=== PATIENT | male | born 1940 | race Caucasian/White ===

== ENCOUNTER 2018-12-19 20:58 | Emergency (ER) | payer MEDICARE, OTHER ==
[~2018-12-19] VITALS: Ht 177.8 cm; Wt 81.8 kg
[2018-12-19] MEDS ORDERED: NS IV 1000 ML 1,000 ML IV SCH (21:16)
[2018-12-19] MEDS ORDERED: ALPR0.25 PO (21:18)
[2018-12-19 21:21] LABS: HEMATOCRIT 45 % (40-54); HEMOGLOBIN 15.4 G/DL (13.3-17.7); MEAN CORPUSCULAR HEMOGLOBIN 30 PG (25-34); MEAN CORPUSCULAR HGB CONC 34 G/DL (32-36); MEAN CORPUSCULAR VOLUME 89 FL (80-99); WHITE BLOOD COUNT 6.3 10^3/uL (4.3-11.0)
[2018-12-19 21:22] LABS: BASOPHILS % (AUTO) 0 % (0-10); EOSINOPHILS # (AUTO) 0.3 10^3/uL (0.0-0.3); EOSINOPHILS % (AUTO) 5 % (0-10); LYMPHOCYTES # (AUTO) 2.1 X 10^3 (1.0-4.0); LYMPHOCYTES % (AUTO) 33 % (12-44); MEAN PLATELET VOLUME 8.5 FL (7.4-10.4); MONOCYTES # (AUTO) 0.6 X 10^3 (0.0-1.0); MONOCYTES % (AUTO) 9 % (0-12); NEUTROPHILS # (AUTO) 3.3 X 10^3 (1.8-7.8); NEUTROPHILS % (AUTO) 52 % (42-75); PLATELET COUNT 264 10^3/uL (130-400); RED CELL DISTRIBUTION WIDTH 13.3 % (10.0-14.5)
--- NOTE | 2018-12-19 21:28 | ED Cardiac General ---
History of Present Illness General Chief Complaint: Chest Pain Stated Complaint: CHEST TIGHTNESS,COUGHING Nursing Triage Note: pt reports 3 weeks of fatigue, not feeling right and chest tightness at times, no cp upon arrival to ed History of Present Illness Date Seen by Provider: Dec 19, 2018 Time Seen by Provider: 21:00 Initial Comments The patient is a 78-year-old male with no known chronic medical history and who does not take any daily medications. 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 The patient presents with concern for 3 weeks of indolent symptoms of fatigue with exertion, dry nonproductive cough and mild malaise. He reports some associated chest discomfort at times, mostly with coughing, but denies any now. 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 He denies any associated fevers, nausea or vomiting, decreased food or fluid intake, headache, focal weakness, numbness, tingling, neck stiffness, vision changes, shortness of breath at rest or really any dyspnea with exertion at all, flank pain, back pain, dysuria or hematuria, changes in bowel habits. Patient is pleasantly and appropriately interactive and alert and oriented 4 and no significant distress upon initial assessment. Vital signs are appropriate aside from mildly elevated blood pressure. Patient does have a follow-up appointment already scheduled with his primary care physician in a few days but was feeling so rundown today that he elected to come in to the emergency department for evaluation. Allergies and Home Medications Allergies Coded Allergies: meperidine (Verified Allergy, Unknown, 12/19/18) Home Medications Alprazolam 0.25 Mg Tablet, 0.25 MG PO for ANXIETY, (Reported) Patient Home Medication List Home Medication List Reviewed: Yes Review of Systems Review of Systems Constitutional: see HPI All Other Systems Reviewed Negative Unless Noted: Yes (Negative excepted noted.) Past Tbdyeom-Kujzge-Ajwdtz Hx Past Med/Social Hx: Reviewed Nursing Past Med/Soc Hx Patient Social History Alcohol Use: Denies Use Recreational Drug Use: No Smoking Status: Never a Smoker 2nd Hand Smoke Exposure: No Recent Foreign Travel: No Contact w/Someone Who Travel: No Recent Infectious Disease Expo: No Recent Hopitalizations: No Physical Abuse: No Sexual Abuse: No Mistreated: No Fear: No Seasonal Allergies Seasonal Allergies: No Past Medical History Surgeries: No Respiratory: No Cardiac: No Neurological: No Genitourinary: No Gastrointestinal: No Musculoskeletal: No Endocrine: No HEENT: No Cancer: No Psychosocial: No Integumentary: No Blood Disorders: No Family Medical History Reviewed Nursing Family Hx Physical Exam Vital Signs Vital Signs - First Documented Capillary Refill : Less Than 3 Seconds Height, Weight, BMI Height: '" Weight: lbs. oz. kg; 25.00 BMI Method: General Appearance: No Apparent Distress Other comments This is an elderly male appearing nontoxic and in no acute distress. Head is normocephalic and atraumatic. Neck is supple and nontender. Oropharynx is moist. Lungs are clear to auscultation in all stations. There is a normal S1 and S2 without rubs or gallops and capillary refill is appropriate, less than 2 seconds globally. Abdomen is soft, nontender nondistended. Skin is warm and dry without cyanosis, clubbing or edema. There is no dependent peripheral edema noted. Psychiatrically, the patient immaturity appropriate mood and affect and is alert. Neurologically, patient a related in with a narrow, steady gait, is alert and oriented 4 and no lateralizing deficits are grossly evident. Progress/Results/Core Measures Results/Orders Lab Results Laboratory Tests Test 12/19/18 21:05 12/19/18 21:16 Range/Units White Blood Count 6.3 4.3-11.0 10^3/uL Red Blood Count 5.07 4.35-5.85 10^6/uL Hemoglobin 15.4 13.3-17.7 G/DL Hematocrit 45 40-54 % Mean Corpuscular Volume 89 80-99 FL Mean Corpuscular Hemoglobin 30 25-34 PG Mean Corpuscular Hemoglobin Concent 34 32-36 G/DL Red Cell Distribution Width 13.3 10.0-14.5 % Platelet Count 264 130-400 10^3/uL Mean Platelet Volume 8.5 7.4-10.4 FL Neutrophils (%) (Auto) 52 42-75 % Lymphocytes (%) (Auto) 33 12-44 % Monocytes (%) (Auto) 9 0-12 % Eosinophils (%) (Auto) 5 0-10 % Basophils (%) (Auto) 0 0-10 % Neutrophils # (Auto) 3.3 1.8-7.8 X 10^3 Lymphocytes # (Auto) 2.1 1.0-4.0 X 10^3 Monocytes # (Auto) 0.6 0.0-1.0 X 10^3 Eosinophils # (Auto) 0.3 0.0-0.3 10^3/uL Basophils # (Auto) 0.0 0.0-0.1 10^3/uL Prothrombin Time 12.4 12.2-14.7 SEC INR Comment 0.9 0.8-1.4 Activated Partial Thromboplast Time 26 24-35 SEC Sodium Level 144 135-145 MMOL/L Potassium Level 4.4 3.6-5.0 MMOL/L Chloride Level 109 H 98-107 MMOL/L Carbon Dioxide Level 26 21-32 MMOL/L Anion Gap 9 5-14 MMOL/L Blood Urea Nitrogen 20 H 7-18 MG/DL Creatinine 1.22 0.60-1.30 MG/DL Estimat Glomerular Filtration Rate 58 BUN/Creatinine Ratio 16 Glucose Level 90 70-105 MG/DL Calcium Level 9.5 8.5-10.1 MG/DL Corrected Calcium 9.3 8.5-10.1 MG/DL Total Bilirubin 0.4 0.1-1.0 MG/DL Aspartate Amino Transf (AST/SGOT) 30 5-34 U/L Alanine Aminotransferase (ALT/SGPT) 34 0-55 U/L Alkaline Phosphatase 63 40-136 U/L Troponin I < 0.30 <0.30 NG/ML Pro-B-Type Natriuretic Peptide 121.7 H <75.0 PG/ML Total Protein 6.8 6.4-8.2 GM/DL Albumin 4.2 3.2-4.5 GM/DL Lipase 52 8-78 U/L Urine Color YELLOW Urine Clarity CLEAR Urine pH 6.5 5-9 Urine Specific [place] 1.015 L 1.016-1.022 Urine Protein NEGATIVE NEGATIVE Urine Glucose (UA) NEGATIVE NEGATIVE Urine Ketones NEGATIVE NEGATIVE Urine Nitrite NEGATIVE NEGATIVE Urine Bilirubin NEGATIVE NEGATIVE Urine Urobilinogen 0.2 NORMAL MG/DL Urine Leukocyte Esterase NEGATIVE NEGATIVE Urine RBC (Auto) TRACE-I NEGATIVE Urine RBC 5-10 H /HPF Urine WBC NONE /HPF Urine Squamous Epithelial Cells NONE /HPF Urine Crystals NONE /LPF Urine Bacteria NEGATIVE /HPF Urine Casts NONE /LPF Urine Mucus NEGATIVE /LPF Urine Culture Indicated NO My Orders Orders - ADDIE SOLITARIO MD Cbc With Automated Diff (12/19/18 21:16) Comprehensive Metabolic Panel (12/19/18 21:16) Lipase (12/19/18 21:16) Troponin I (12/19/18 21:16) Ekg Tracing (12/19/18 21:16) Chest Pa/Lat (2 View) (12/19/18 21:16) Probnp Fs (12/19/18 21:16) Protime With Inr (12/19/18 21:16) Partial Thromboplastin Time (12/19/18 21:16) Ua Culture If Indicated (12/19/18 21:16) Acetaminophen Tablet/Caplet (Tylenol T (12/19/18 21:30) Ed Iv/Invasive Line Start (12/19/18 21:16) Ns Iv 1000 Ml (Sodium Chloride 0.9%) (12/19/18 21:16) Ct Chest W (12/19/18 21:54) Iohexol Injection (Omnipaque 350 Mg/Ml 1 (12/19/18 22:15) Received Contrast (Hold Metformin- Contr (12/19/18 22:15) Sodium Chloride Flush (Catheter Flush Sy (12/19/18 22:15) Ns (Ivpb) (Sodium Chloride 0.9% Ivpb Bag (12/19/18 22:15) Medications Given in ED Current Medications Medications Dose Ordered Sig/Taj Route Start Time Stop Time Status Last Admin Dose Admin Acetaminophen 975 mg ONCE PRN PO 12/19/18 21:30 12/19/18 21:24 975 MG Iohexol 75 ml ONCE ONCE IV 12/19/18 22:15 12/19/18 22:19 DC 12/19/18 22:32 75 ML Sodium Chloride 100 ml ONCE ONCE IV 12/19/18 22:15 12/19/18 22:19 DC 12/19/18 22:32 100 ML Vital Signs/I&O 12/19/18 12/19/18 21:11 21:11 Temp 37.1 Pulse 60 Resp 16 B/P (MAP) 160/74 (102) Pulse Ox 96 O2 Delivery Room Air Room Air Blood Pressure Mean: 102 Progress Progress Note : Time: 21:29 Progress Note Elderly chisholm without significant medical comorbidities and without any smoking history in the past who presents with 3 weeks of dry nonproductive cough in association with fatigue and malaise. He has also had some mild chest pressure at times, mostly with coughing. EKG nonacute. Vital signs generally reassuring. We will check labs and urinalysis and chest x-ray and will give a liter of IV fluids and some Tylenol and will then reevaluate. Update 2311: Workup as above is unremarkable and reassuring. Chest CT scan with no acute abnormalities but a 5 mm soft tissue nodule is noted in the right lower lobe which I have counseled the patient and his that he does need to follow up on with his primary. We will proceed with discharge home at this time. We will prescribe a doxycycline course for the patient given 3 weeks of nonproductive cough and malaise although nothing is seen radiographically to suggest a pneumonia. We will also prescribe some Tylenol which has seemed to make patient feel better along with IV fluids here in the emergency department. He is to follow-up on Thursday with his primary care physician as already scheduled to talk about next steps. He understands that if he feels worse is that of better or develops other new symptoms of concern that he needs to return immediately to the emergency department for reevaluation. All questions are answered. Initial ECG Impression Date: Dec 19, 2018 Comment Sinus rhythm, rate 59, no acute ST elevation or depression, ME 161, QRS 106, QTC 414, EP interpretation. Departure Impression Primary Impression: Fatigue Additional Impression: Cough Disposition: 01 HOME, SELF-CARE Condition: Improved Departure-Patient Inst. Patient Instructions: Cough in Adults, Fatigue (DC) Add. Discharge Instructions: Follow-up with your primary care doctor this coming Thursday as are scheduled. Testing today is reassuring but as discussed you do have a pulmonary nodule that will need follow-up x-rays. Make sure to discuss this with your primary care physician. Return immediately for worsening symptoms or any other new concern. Scripts Benzonatate (TESSALON PERLES) 100 Mg Capsule 100 MG PO Q8H for cough, #24 CAP Prov: ADDIE SOLITARIO MD 12/19/18 Acetaminophen (Acetaminophen) 500 Mg Tablet 500 MG PO Q4H for Pain, #60 TAB Prov: ADDIE SOLITARIO MD 12/19/18 Doxycycline Hyclate (Doxycycline Hyclate) 100 Mg Tablet 100 MG PO BID for 10 Days, #20 TAB 0 Refills Prov: ADDIE SOLITARIO MD 12/19/18 ADDIE SOLITARIO MD Dec 19, 2018 21:28
[2018-12-19 21:29] LABS: INR 0.9 (0.8-1.4); PROTHROMBIN TIME PATIENT 12.4 SEC (12.2-14.7)
[2018-12-19] MEDS ORDERED: ACETAMINOPHEN 325 MG TABLET PO PRN (21:30)
--- NOTE | 2018-12-19 21:43 | Diagnostic Imaging Report ---
INDICATION: Cardiac assessment Heart size and pulmonary vascularity are within normal limits. Monitoring leads overlie the chest. There is no pneumothorax or consolidation. There is mild hiatal hernia. No pleural fluid is identified. IMPRESSION: No acute abnormality is detected. Dictated by: Dictated on workstation # [id number]
[2018-12-19 21:46] LABS: ALANINE AMINOTRANSFERASE 34 U/L (0-55); ALKALINE PHOSPHATASE 63 U/L (40-136); BILIRUBIN,TOTAL 0.4 MG/DL (0.1-1.0); BUN/CREATININE RATIO 16; CALCIUM 9.5 MG/DL (8.5-10.1); CARBON DIOXIDE 26 MMOL/L (21-32); CHLORIDE 109 MMOL/L (98-107); CREATININE SERUM 1.22 MG/DL (0.60-1.30); GFR ESTIMATED 58; GLUCOSE 90 MG/DL (70-105); POTASSIUM 4.4 MMOL/L (3.6-5.0); SODIUM 144 MMOL/L (135-145)
[2018-12-19 21:47] LABS: ALBUMIN 4.2 GM/DL (3.2-4.5); LIPASE 52 U/L (8-78); TOTAL PROTEIN 6.8 GM/DL (6.4-8.2)
[2018-12-19] MEDS ORDERED: CATHETER FLUSH 10 ML SYR IV PRN (22:15)
[2018-12-19] MEDS ORDERED: IOHEXOL 350 MG/ML 100 ML (OMNIPAQUE 350) VIAL IV ONE (22:15)
[2018-12-19] MEDS ORDERED: NS 100 ML (IVPB) BAG IV ONE (22:15)
[2018-12-19] MEDS ORDERED: HOLD METFORMIN - RECEIVED CONTRAST 20 ML VIAL IV SCH (22:15)
[2018-12-19 23:02] LABS: BACTERIA,URINE NEGATIVE /HPF; BILIRUBIN,URINE NEGATIVE (NEGATIVE); CLARITY,URINE CLEAR; COLOR,URINE YELLOW; GLUCOSE, URINE (UA) NEGATIVE (NEGATIVE); KETONES,URINE NEGATIVE (NEGATIVE); LEUKOCYTE ESTERASE ,URINE NEGATIVE (NEGATIVE); NITRITE,URINE NEGATIVE (NEGATIVE); PH,URINE 6.5 (5-9); PROTEIN,URINE NEGATIVE (NEGATIVE); UROBILINOGEN,URINE 0.2 MG/DL (NORMAL)
[2018-12-19] MEDS ORDERED: BENZ100C18 PO (23:17)
[2018-12-19] MEDS ORDERED: ACET-93 PO (23:17)
[2018-12-19] MEDS ORDERED: DOXY100T2 PO (23:17)
[2018-12-19 23:21] VITALS: BP 148/69
--- NOTE | 2018-12-20 06:05 | Diagnostic Imaging Report ---
PROCEDURE: CT chest with contrast only. TECHNIQUE: Multiple contiguous axial images were obtained through the chest after administration of intravenous contrast. Auto Exposure Controls were utilized during the CT exam to meet ALARA standards for radiation dose reduction. INDICATION: Prostate cancer The aorta is patent and nonaneurysmal. There is no evidence for central pulmonary arterial embolus. There is a moderate hiatal hernia. No consolidating pneumonia. No thoracic effusion or pneumothorax. No dominant lung mass. The visualized upper abdomen showed partial visualization of renal cysts. No thoracic lymphadenopathy. No suspicious or acute bony abnormality evident. IMPRESSION: Hiatal hernia and renal cysts. No findings suggestive of metastatic disease or acute abnormalities. Dictated by: Dictated on workstation # [id number]
== END 2018-12-19 23:21 | disposition home or self-care (01) ==
LOC: EDUNIT# 20:58 → ER FS 21:00
DX: R53.83 Other fatigue (principal); R05 Cough; Z88.5 Allergy status to narcotic agent
CPT/HCPCS: 36415; 71046; 71260; 80053; 81000; 83690; 83880; 84484; 85025; 85610; 85730; 93005

== ENCOUNTER 2019-03-07 12:59 | Outpatient (CLI) | payer MEDICARE, OTHER ==
[~2019-03-07 12:59] MED LIST: ACET-93 PO; ALPR0.25 PO; BENZ100C18 PO; DOXY100T2 PO
[2019-03-07] MEDS ORDERED: RT-ALBUTEROL SULF 2.5 MG/3 ML PRE-MIX VIAL ONE (13:55)
[2019-03-07] MEDS ORDERED: RT-ALBUTEROL SULF 2.5 MG/3 ML PRE-MIX VIAL INH ONE (14:00)
== END 2019-03-07 13:59 ==
LOC: SLEEP 12:59 → RT 13:59
PROVIDERS: ATTEND Nurse Practitioner Family
DX: J30.9 Allergic rhinitis, unspecified (principal); G47.10 Hypersomnia, unspecified
CPT/HCPCS: 94060; 94726; 94729

== ENCOUNTER → 2019-06-27 | Outpatient (CLI) | payer MEDICARE, OTHER ==
--- NOTE | 2019-06-27 12:06 | Diagnostic Imaging Report ---
PROCEDURE: CT chest without contrast. TECHNIQUE: Multiple contiguous axial images were obtained through the chest without the use of intravenous contrast. Auto Exposure Controls were utilized during the CT exam to meet ALARA standards for radiation dose reduction. INDICATION: Follow-up of pulmonary nodule. Patient with history of prostate cancer. COMPARISON: Chest CT performed on 12/19/2018. FINDINGS: TRACHEA AND MAIN BRONCHI: Patent without evidence of tracheal or endobronchial lesion. LUNGS AND PLEURA: There is unchanged mild biapical pleural parenchymal scarring. Benign small calcified granulomas are scattered throughout both lung canales, similar in size and distribution to prior exam. There is an unchanged 5 mm pulmonary nodule in the lateral basal segment of the right lower lobe (image 122 series 3). There is also an unchanged 5 mm pulmonary nodule in the anterior segment of the left upper lobe (best seen on coronal image 22, series 401). No new/suspicious nodule or pulmonary mass is appreciated. There is no focal consolidation. No pleural effusion or pneumothorax. MEDIASTINUM AND VY: There is asymmetric enlargement of the left thyroid lobe. No discrete thyroid nodule or focal abnormality is demonstrated in the left thyroid lobe on this noncontrast study. There is an unchanged low-attenuation nodule that is partially imaged in the right thyroid lobe. There are calcified mediastinal and hilar lymph nodes, compatible with prior granulomatous disease. Esophagus is nondistended. HEART AND VESSELS: Heart is normal in size. No pericardial effusion. Atherosclerotic calcification involves the aorta and its branches, including the coronary arteries. Thoracic aorta is nonaneurysmal. DIAPHRAGM AND UPPER ABDOMEN: There is an unchanged moderate hiatal hernia. Scattered punctate benign calcified granulomas are demonstrated in the spleen. Bilateral renal cysts are again demonstrated, some of which on the right demonstrate peripheral calcification. No acute abnormality is appreciated in the upper abdomen. CHEST WALL: Unremarkable. BONES: Multilevel degenerative changes involve the spine. No acute osseous abnormality. IMPRESSION: No acute chest disease. No significant change in 5 mm pulmonary nodules in the right lower lobe and left upper lobe. Given patient's history of prostate cancer, consideration can be given to additional six-month follow-up to demonstrate 12-month stability of these nodules. There is unchanged asymmetric enlargement of the left thyroid lobe, without discrete left thyroid lobe mass/nodule on this noncontrast study. There is an unchanged partially visualized low-attenuation nodule in the right thyroid lobe, which is of doubtful clinical significance. Further evaluation with dedicated thyroid ultrasound could be performed, as clinically indicated. Unchanged moderate hiatal hernia. Dictated by: Dictated on workstation # [id number]
== END ==
LOC: RAD FS 08:36
PROVIDERS: ATTEND Family Medicine
DX: R91.8 Other nonspecific abnormal finding of lung field (principal); E04.9 Nontoxic goiter, unspecified; K44.9 Diaphragmatic hernia without obstruction or gangrene
CPT/HCPCS: 71250

== ENCOUNTER 2020-04-02 05:33 | Outpatient (RCR) | payer MEDICARE, OTHER ==
[~2020-04-02] VITALS: Ht 177 cm; Wt 81.8 kg
== END 2020-04-02 11:09 | disposition home or self-care (01) ==
LOC: PREOP 05:33
PROVIDERS: ATTEND Surgery
DX: Z01.818 Encounter for other preprocedural examination (principal)

== ENCOUNTER → 2020-04-02 | Outpatient (CLI) | payer MEDICARE, OTHER ==
[~2020-04-02] MED LIST changes: +FAMO-119 PO; +MTP25TSR PO; +SERT50TA9 PO
== END ==
LOC: LAB FS 11:06
PROVIDERS: ATTEND Nurse Practitioner Family
DX: Z01.812 Encounter for preprocedural laboratory examination (principal); Z20.822 Contact with and (suspected) exposure to COVID-19
CPT/HCPCS: 87635

== ENCOUNTER 2020-04-04 10:31 | Day surgery (SDC) | payer MEDICARE, OTHER ==
[~2020-04-04] VITALS: Ht 177 cm; Wt 82.0 kg
[2020-04-04] MEDS ORDERED: LACTATED RINGERS 1,000 ML IV ONE (10:33)
--- NOTE | 2020-04-04 10:38 | Progress Note-Pre Operative ---
Pre-Operative Progress Note H&P Reviewed The H&P was reviewed, patient examined and no changes noted. Date Seen by Provider: Apr 04, 2020 Time Seen by Provider: 10:30 Date H&P Reviewed: Apr 04, 2020 Time H&P Reviewed: 10:30 Pre-Operative Diagnosis: weight loss, screening VIPIN GOMEZ MD Apr 04, 2020 10:38
--- NOTE | 2020-04-04 10:38 | Conscious Sedation/ASA ---
Conscious Sedation Pre-Proced Time 10:30 ASA Score 2 For ASA 3 and 4: Consider anesthesia and medical clearance. Also, for patients with a history of failed moderate sedation consider anesthesia. Airway Lungs Heart ASA score ASA 1: a normal healthy patient ASA 2: a patient with a mild systemic disease (mid diabetes, controlled hypertension, obesity ASA 3: a patient with a severe systemic disease that limits activity (angina, COPD, prior Myocardial infarction) ASA 4: a patient with an incapacitating disease that is a constant threat to life (CHF, renal failure) ASA 5: a moribund patient not expected to survive 24 hrs. (ruptured aneurysm) ASA 6: a declared brain- patient whose organs are being harvested. For emergent operations, add the letter E after the classification Mallampati Classification Grade 2 Sedation Plan Analgesia, Amnesia, Plan communicated to team members, Discussed options with patient/fam, Discussed risks with patient/fam The patient is an appropriate candidate to undergo the planned procedure, sedation, and anesthesia. The patient immediately re-assessed prior to indication. VIPIN GOMEZ MD Apr 04, 2020 10:38
--- NOTE | 2020-04-04 10:39 | Discharge Inst-Surgical ---
D/C Lap Instructions-PATRICIA Follow Up Activity as tolerated High Fiber Diet 25g or more per day Avoid Alcohol, Caffeine, Spicy [place] and Acid foods. Drink 64 fluid oz or more of fluids per day. Symptoms to Report: Fever over 101 degree F, Nausea/Vomiting If any problems/questions: Contact your physician or go to Emergency Room VIPIN GOMEZ MD Apr 04, 2020 10:39
[2020-04-04] MEDS ORDERED: LACTATED RINGERS 1,000 ML IV STA (10:40)
[2020-04-04] MEDS ORDERED: HURRICAINE EXT TUBE (BENZOCAINE) XX PRN (10:45)
[2020-04-04] MEDS ORDERED: ACETAMINOPHEN 325 MG TABLET PO PRN (10:45)
[2020-04-04] MEDS ORDERED: morphine INJ 10 MG/ML 1ML (SYR OR VIAL) IVP PRN ×2 (10:45)
[2020-04-04] MEDS ORDERED: HYDROcodone/APAP 5 MG/325 MG (LORTAB) TAB PO PRN (10:45)
[2020-04-04] MEDS ORDERED: ONDANSETRON 4 MG/2 ML (SDV) Z0FRAN IVP PRN (10:45)
[2020-04-04] MEDS ORDERED: LIDOCAINE JELLY 2% 6 ML SYRINGE MM PRN (10:45)
[2020-04-04 10:51] VITALS: BP 157/82
[2020-04-04] MEDS ORDERED: PROPOFOL INJECTION 50 ML IV ONE (11:11)
[2020-04-04] MEDS ORDERED: MIDAZOLAM 2 MG/2 ML (VERSED) VIAL ONE ×2 (11:11→12:33)
[2020-04-04] MEDS ORDERED: HURRICAINE EXT TUBE (BENZOCAINE) ONE (12:37)
[2020-04-04] MEDS ORDERED: LIDOCAINE JELLY 2% 6 ML SYRINGE ONE (12:37)
--- NOTE | 2020-04-04 12:48 | Progress Note-Pre Operative ---
Pre-Operative Progress Note H&P Reviewed The H&P was reviewed, patient examined and no changes noted. Date Seen by Provider: Apr 04, 2020 Time Seen by Provider: 12:00 Date H&P Reviewed: Apr 04, 2020 Time H&P Reviewed: 12:00 Pre-Operative Diagnosis: GERD, screening VIPIN GOMEZ MD Apr 04, 2020 12:48
[2020-04-04 13:15] VITALS: BP 92/51
[2020-04-04 13:20] VITALS: BP 100/55
[2020-04-04 13:25] VITALS: BP_SYST 119; BP_SYST 120; BP_DIAS 65; BP_DIAS 67
[2020-04-04 13:54] VITALS: BP 114/67
[2020-04-04 13:55] VITALS: BP 114/67
--- NOTE | 2020-04-04 14:09 | Progress Note-Post Operative ---
Post-Operative Progess Note Surgeon (s)/Wind Development Director (s) Surgeon VIPIN GOMEZ MD Wind Development Director: none Pre-Operative Diagnosis GERD, screening Post-Operative Diagnosis reflux esophagitis(stage 2), small-moderate HH(2.5cm), mild-mod gastritis. chronic stage 2 ext and int hemorrhoids, absent prostate, moderate sigmoid diverticulosis. Procedure & Operative Findings Date of Procedure 04/04/20 Procedure Performed/Findings EGD with bx. colonoscopy Anesthesia Type mac Estimated Blood Loss Estimated blood loss (mL): minimal Specimens/Packing Specimens Removed ge jxn, antrum VIPIN GOMEZ MD Apr 04, 2020 14:09
--- NOTE | 2020-04-04 15:15 | OPERATIVE REPORT ---
DATE OF SERVICE: 04/04/2020 ATTENDING PRIMARY CARE PHYSICIAN: Dr. Lyndon Tomas. PREOPERATIVE DIAGNOSIS: Gastroesophageal reflux disease. He also is in need of a screening colonoscopy. He does have a personal history of prostate cancer and a first degree family history of colon cancer and has been getting colonoscopies every five years. DESCRIPTION OF PROCEDURE: The patient was brought to the endoscopy suite and laid in the left lateral decubitus position with the head slightly elevated. After adequate IV pain and sedative medications and monitored anesthesia care, the mouthpiece was applied. The endoscope was placed in the mouth visualizing the hypopharyngeal region. Vocal cords, epiglottis and vallecula identified and appeared to be normal. The endoscope was gently abated, the esophageal opening and esophagus insufflated. The endoscope was then advanced to the first, second and third portion of the esophagus at the level of GE junction, reflux esophagitis stage II identified. There were no ulcers or strictures identified in this region. A biopsy was taken with forceps with visualization of good hemostasis. The endoscope was then advanced into the stomach and endoscope retroflexed, visualizing a small to moderate size hiatal hernia approximately 2.5 cm in size. This appears to be a type 1 sliding hiatal hernia. There was a mild to moderate gastritis. No formal ulcerations, polyps or any neoplasms. A biopsy was taken of the stomach antrum to rule out H. pylori with visualization of good hemostasis. The endoscope was then advanced to the pylorus and the first and second portion of the duodenum, which appeared normal with no distal obstructions. The endoscope was then slowly withdrawn while taking a second look and suctioning of residual air with no additional findings. We then proceeded with a colonoscopy, where a digital rectal examination was performed, which revealed mild chronic stage II external and internal hemorrhoids. Prostate gland appeared to be a surgically absent. The endoscope was then intubated into the anus and rectum gently insufflated. The endoscope was then advanced to the valves of [place] of the rectum with no polyps or any neoplasms identified. Through the sigmoid colon, a moderate sigmoid diverticulosis was identified. The endoscope was then advanced through the descending, transverse and ascending colon to the cecum. These segments were normal. There were no polyps or any neoplasms identified throughout the colon or rectum. The endoscope was then slowly withdrawn while taking a second look and suctioning of residual air with no additional findings. The patient tolerated the procedure well. We will change his Pepcid with Protonix 40 mg daily as well as the necessary lifestyle and diet accommodation including small and more frequent meals, avoiding eating at night as well as head elevation while lying supine. He also needs to avoid caffeinated beverages, spicy, greasy and acidic foods. We will also recommend a high fiber diet with at least 30 grams of fiber daily as well as significant amounts of water to promote soft stools on a daily basis. He is asymptomatic, he does not need another colonoscopy for another 5 years. Job ID: [id number] DocumentID: [id number] Dictated Date: 04/04/2020 13:21:14 [employer]an Process Deployment Consultant Date: 04/04/2020 15:14:36 Dictated By: VIPIN GOMEZ MD MTDD
--- NOTE | 2020-04-06 11:01 | Anesthesia-General Post-Op ---
MAC Patient Condition Mental Status/LOC: Same as Preop Cardiovascular: Satisfactory Nausea/Vomiting: Absent Respiratory: Satisfactory Pain: Controlled Complications: Absent Post Op Complications Complications None Follow Up Care/Instructions Patient Instructions None needed. Anesthesiology Discharge Order Discharge Order Patient was seen after the procedure on 04-04-20 at approximately 1330 and he was doing well, no complaints, stable vital signs, no apparent adverse anesthesia problems. MONICA OLMSTEAD DO Apr 06, 2020 11:01
== END 2020-04-04 13:56 | disposition home or self-care (01) ==
LOC: ENDO 10:31
PROVIDERS: ATTEND Surgery
DX: Z12.11 Encounter for screening for malignant neoplasm of colon (principal); K64.1 Second degree hemorrhoids; K29.50 Unspecified chronic gastritis without bleeding; K44.9 Diaphragmatic hernia without obstruction or gangrene; K21.00 Gastro-esophageal reflux disease with esophagitis, without bleeding; K57.30 Diverticulosis of large intestine without perforation or abscess without bleeding; I10 Essential (primary) hypertension; F32.9 Major depressive disorder, single episode, unspecified; Z79.899 Other long term (current) drug therapy; Z88.5 Allergy status to narcotic agent; Z87.19 Personal history of other diseases of the digestive system; Z85.46 Personal history of malignant neoplasm of prostate; Z80.0 Family history of malignant neoplasm of digestive organs
CPT/HCPCS: 43239; G0105; 88305

== ENCOUNTER → 2021-04-10 | Outpatient (CLI) | payer SELFPAY ==
[~2021-04-10] MED LIST changes: +SERT-413 PO; -SERT50TA9 PO
--- NOTE | 2021-04-10 12:42 | Diagnostic Imaging Report ---
CLINICAL HISTORY: Mixed hyperlipidemia. COMPARISON: 06/27/2019. TECHNIQUE: Non-contrast enhanced EKG-gated axial images were obtained with a coned down field of view to assess for coronary calcium. Post processing of the images was performed on an independent work station. CTDI volume 4.21 mGy DLP 72 mGy*cm FINDINGS: Important Information About Your Scan: The following information is based on an analysis of the coronary arteries only. Calcium deposits do not correspond directly to the percentage of narrowing of the arteries. They do correlated directly to the amount of coronary plaque, and to the risk of future coronary disease. The calcium deposits usually begin to form years before any symptoms develop. Early detection and modification of risk factors, such as smoking and cholesterol intake, can slow the progress of coronary artery disease. A low score suggests a low likelihood of coronary artery disease, but does not exclude the possibility of significant coronary artery narrowing. The results should be discussed with your physician, taking into account other risk factors such as age, gender, family history, diabetes, smoking or high cholesterol levels. Should you ever experience chest pain, difficulty breathing, discomfort radiating into your neck or arm, or discomfort combined with lightheadedness, sweating, fainting or nausea, you should seek prompt medical attention. Calcium Score: Agatston units 0 - 0: No identifiable atherosclerotic plaque 1 - 10: Minimal plaque burden 11 - 100: Mild plaque burden 101 - 400: Moderate plaque burden Greater than 401: Extensive plaque burden. Score Summary: Your total calcium score is 112.4 Agatston units. Ranking Guide: Your score of 112.4 Agatston units places you in the 50th to 25th percentile rank. That means out of a group of people with same gender and similar age as yourself 50% percent will have a higher calcium score than you, as reported in literature. CORONARY [id number] Left Main artery (LMA) 53.8 Left Anterior Descending (LAD) 53.9 Left Circumflex (LCX) 0 Right Coronary Artery (RCA) 4.6 Total 112.4 Agatston units The visualized portions of the lungs demonstrate no focal nodules or masses. There are no pleural or pericardial effusions. Moderate hiatal hernia is seen. The visualized osseous structures are normal. IMPRESSION: 1. CT coronary calcium score is 112.4 Agatston units 2. Adoption and maintenance of a healthy lifestyle is recommended for all people. This includes regular appropriate exercise and observance of a proper diet, to ensure balanced nutrition and weight control. 3. Tobacco use should be avoided. 4. Hypercholesterolemia has been linked to coronary atherosclerosis. Ensure strict adherence to NCEP (National Cholesterol Education Panel) cholesterol-lowering guidelines. For primary prevention, these include a target goal for total cholesterol of less than 200 mg/dL, HDL cholesterol of greater than 40 mg/dL, triglycerides of less than 200 mg/dL and LDL cholesterol of less than 100 mg/dL Secondary prevention involves more stringent goals. However, please note that these are general recommendations and as with all such matters, the personal family physician should be consulted regarding recommendations appropriate for the individual. Recommend evaluation and treatment for all the other cardiovascular risk factors. Dictated by: Dictated on workstation # [id number]
== END ==
LOC: RAD FS 10:29
PROVIDERS: ATTEND Family Medicine
DX: E78.00 Pure hypercholesterolemia, unspecified (principal); E78.2 Mixed hyperlipidemia; I25.10 Atherosclerotic heart disease of native coronary artery without angina pectoris
CPT/HCPCS: 75571

== ENCOUNTER → 2022-01-07 | Outpatient (CLI) | payer MEDICARE, OTHER | LOC: CARDFS 08:47 | PROVIDERS: ATTEND Internal Medicine Cardiovascular Disease | DX: I08.0 Rheumatic disorders of both mitral and aortic valves (principal); I11.9 Hypertensive heart disease without heart failure; I25.10 Atherosclerotic heart disease of native coronary artery without angina pectoris | CPT/HCPCS: 93306 ==

== ENCOUNTER → 2022-01-27 | Outpatient (CLI) | payer MEDICARE, OTHER ==
[~2022-01-27] MED LIST changes: +CATHETER FLUSH 10 ML SYR IVP PRN
[2022-01-27 09:07] VITALS: BP 157/69
--- NOTE | 2022-01-27 10:24 | Cardiology Stress Test Report ---
Stress Test Report Date of Procedure/Referring: Date of Procedure: Jan 27, 2022 PCP Lyndon Tomas MD Admitting Physician Admitting Physician: Attending Physician: Lalito Kahn MD Indications: HTN Baseline Heart Rate: 49 Baseline Blood Pressure: Blood Pressure Systolic: 157 Blood Pressure Diastolic: 69 Vital Signs Date Time Temp Pulse Resp B/P (MAP) Pulse Ox O2 Delivery O2 Flow Rate FiO2 01/27/22 09:07 64 157/69 (98) 99 Room Air Baseline Vital Signs Vital Signs Date Time Temp Pulse Resp B/P (MAP) Pulse Ox O2 Delivery O2 Flow Rate FiO2 01/27/22 09:07 64 157/69 (98) 99 Room Air Baseline EKG: Baseline EKG: NSR Summary: After explaining the procedure and details to the patient, he signed the consent and was brought to the stress nuclear laboratory. Patient exercised on standard Georges protocol, EKG, heart rate and blood pressure were monitored continuously, resting and stress doses of radio tracer were injected, imaging was acquired and reviewed in the short axis, horizontal long axis and vertical long axis views Patient was able to exercise for a total of 7.30 minutes on Georges protocol, METs 9.1 Maximum heart rate 123 Maximum blood pressure 223/80 Stress EKG, Minimal nondiagnostic changes Recovery EKG, Return to baseline TID: 1.1 SSS: 0 SDS: 0 EF: 58 Conclusion: 1. Good exercise tolerance for a total of 7 minutes and 30 seconds on standard Georges protocol total of 9.1 METS achieving 97% of maximum expected heart rate 2. Appropriate heart rate response to exercise with hypertensive response to exercise with peak blood pressure 223/80 return to baseline during recovery 3. Nondiagnostic EKG changes with exercise with [address] depression in lead II, III, aVF and V4 and V5. Return to baseline during recovery 4. No ischemia or infarction noted on SPECT images 5. Normal left ventricular size with normal contractility, ejection fraction 58% Copy Copies To 1: LYNDON TOMAS MD, BASHAR J MD Jan 27, 2022 10:24
== END ==
LOC: CARD 07:23
PROVIDERS: ATTEND Internal Medicine Cardiovascular Disease
DX: I10 Essential (primary) hypertension (principal); I25.10 Atherosclerotic heart disease of native coronary artery without angina pectoris
CPT/HCPCS: 78452; 93017; A9502